=== PATIENT | male | born 1950 | race Caucasian/White ===

== ENCOUNTER 2025-04-15 19:18 | Inpatient (IN) ==
[2025-04-15] MEDS: ACETAMINOPHEN 1,000 MG/100 ML VIAL IV STA (19:54)
[2025-04-15] MEDS: ACETAMINOPHEN 1000 MG/100 ML IV IV ONE (19:54)
[2025-04-15] MEDS: SODIUM CHLORIDE 0.9% 1,000 ML IV ONE (19:54)
[2025-04-15] MEDS: cefTRIAXone SODIUM 2,000 MG/50 ML BAG IV STA (20:00)
--- NOTE | 2025-04-15 20:12 | XRay Report ---
Single frontal view of the chest Comparison made with prior exam dated 09/18/2023 Impression No acute pulmonary pathology. Left chest wall intracardiac device. Electronically signed by Moustapha Muller 04-15-2025 8:12 PM
[2025-04-15 20:17] LABS: Alanine Aminotransferase 80.0 U/L (7-52); Alkaline Phosphatase 40.0 U/L (34-104); Anion Gap 10.0 (3-11); Bilirubin,Total 1.2 mg/dl (0.2-1.0); Blood Urea Nitrogen 47.0 mg/dl (6-23); Calcium 8.2 mg/dl (8.6-10.3); Carbon Dioxide 22.0 mmol/L (21-32); Chloride 100.0 mmol/L (98-107); Creatinine Clr Calc Pharmacy 36.9 ml/min; Glucose 114.0 mg/dl (70-99(Fasting)); Magnesium 2.5 mg/dl (1.7-2.4); Potassium 4.4 mmol/L (3.5-5.1); Sodium 132.0 mmol/L (136-145); Total Protein 6.7 gm/dl (6.0-8.3)
[2025-04-15 20:29] LABS: Hematocrit (blood only) 41.5 % (42.0-52.0); Hemoglobin 13.3 g/dl (14.0-18.0); Mean Corpuscular Hemoglobin 29.8 pg (25.0-34.0); Mean Corpuscular Volume 92.8 fL (80.0-100.0); Platelet Count 57 K/uL (130-400); RDW Standard Deviation 51.8 fL (36.4-46.3); Red Blood Count 4.47 M/uL (4.70-6.10); White Blood Count 7.47 K/ul (4.8-10.8)
[2025-04-15 20:46] LABS: Immature Granulocytes # (auto) 0.02 K/uL (0.01-0.20); Immature Granulocytes % (auto) 0.3 %
[2025-04-15 20:57] LABS: Chlamydia pneumoniae PCR Not Detected (NotDetected); Coronavirus 229E PCR Not Detected (NotDetected); Coronavirus CoV-2 (COVID19)PCR Not Detected (NotDetected); Coronavirus HKU1 PCR Not Detected (NotDetected); Coronavirus NL63 PCR Not Detected (NotDetected); Coronavirus OC43PCR Not Detected (NotDetected); Human Metapneumovirus PCR Not Detected (NotDetected); Parainfluenza Virus 1 PCR Not Detected (NotDetected); Parainfluenza Virus 2 PCR Not Detected (NotDetected); Parainfluenza Virus 3 PCR Not Detected (NotDetected); Parainfluenza Virus 4 PCR Not Detected (NotDetected); Respiratory Syncytial VirusPCR Not Detected (NotDetected); Rhinovirus/Enterovirus PCR Not Detected (NotDetected)
[2025-04-15 21:15] LABS: Procalcitonin 3.60 ng/ml (0-0.5)
[2025-04-15 21:17] LABS: Appearance Urine Turbid (Clear); Bacteria Urine Automated None Seen (None Seen); Cast Urine Automated >20 /lpf (0-2); Glucose Urine UA 3+ (Negative); RBC Urine Automated 0-2 /hpf (0-2); WBC Urine Automated 0-5 /hpf (0-5)
[2025-04-15 21:39] LABS: INR 1.7 (0.9-1.1); Prothrombin Time 17.5 Seconds (9.0-12.0)
[2025-04-15 21:41] LABS: Lyme Screen Rflx Confirmation Negative (Negative)
[2025-04-15] MEDS: DOXYCYCLINE HYCLATE 100 MG in DEXTROSE 5% MINI-B 100 ML IV STA (21:50)
[2025-04-15] MEDS: DIGOXIN 250 MCG in SYRINGE 9 ML IV STA (21:56)
[2025-04-15] MEDS: LACTATED RINGER'S 1,000 ML IV STA (22:04)
--- NOTE | 2025-04-15 22:04 | History & Physical Report ---
Date of Service April 15, 2025 Assessment & Plan (1) Severe sepsis: Plan: Assessment and plan below following discussion of case with ED provider and reviewing patient history/pertinent normal/abnormal diagnostic test results. Severe sepsis SIRS plus lactic acidosis plus ARF Secondary to anaplasmosis Rapid A-fib secondary to illness, hx A-fib/flutter status post ablation/cardiac thrombus/history of DVT on Xarelto Troponin elevation secondary to illness chronic systolic heart failure status post ICD (EF 45%, TTE 2023), patient on the dry side Hypertension, borderline BP at the ER Hyperlipidemia on statin Rx HOCM, mild MR dementia, patient mentating well after initial intervention at the ER chronic anemia, hemoglobin at baseline Hyperglycemia likely prediabetes, outpatient hemoglobin A1c of 5.7 from 2022. past tobacco abuse Admit to PCU given rapid A-fib CS, doxycycline Monitor creatinine and lactic acid response to IVF Hold losartan until creatinine back to baseline Renal ultrasound if without improvement kidney function Digoxin 1 dose now for rapid A-fib given borderline BP Decrease maintenance beta-sophie dose for now given borderline BP DVT prophylaxis. Xarelto adjusted for current renal function Full code Patient partner requesting updates providers. Mayadam Stark, contact #[phone]. Text document was generated using [employer] voice recognition software. It may contain grammatical or spelling errors. Kindly contact undersigned for clarification of any documentation item in question. History of Present Illness Chief Complaint: Weakness, fever, not feeling well Primary Care Provider: Joel Morales MD History obtained from patient, family, and records. Medical history significant for chronic systolic heart failure status post ICD (EF 45%, TTE 2023), A-fib/flutter status post ablation/cardiac thrombus/history of DVT on Xarelto, HOCM, mild MR, PFO, NSVT, hypertension, hyperlipidemia, dementia, chronic anemia (baseline hemoglobin of 13), chronic back pain, past tobacco abuse. Last confinement 2013 for rapid A-fib. Patient not feeling well over the last 2 days. Patient increasingly weak and with mild confusion as per partner. Low-grade fever at home. Poor appetite. Patient denies headache, chest pain, SOB, cough, unusual abdominal or back pain. A lot of ticks at patient's home as per partner although patient has no recollection of recent tick bites. Patient noted to be in tachycardic upon EMS arrival at home. Patient with rapid A-fib upon arrival at the ER, heart rate 130s. Lowest SBP of 90s documented at the ER. Ceftriaxone and doxycycline administered at the ER for sepsis. Medical History as above Surgical History : Cataract surgery, vascular procedures, ICD, hernia repair Family History : Lung cancer, colon cancer, aplastic anemia, heart disease Personal/Social history : Past tobacco abuse, occasional EtOH intake, disabled Allergies Allergy/AdvReac Type Severity Reaction Status Date / Time pollen extracts Allergy Intermediate ITCHY Verified 04/15/25 22:09 EYES, SNEEZING, CONGESTION Home Medications Medication Instructions Recorded Confirmed Type amoxicillin 500 mg capsule 2,000 mg PO DIRECTED PRN PRIOR 10/06/23 04/15/25 History TO DENTAL PROCEDURES aspirin 81 mg tablet,delayed 81 mg PO [facility] 10/06/23 04/15/25 History release famotidine 20 mg tablet 20 mg PO [facility] 10/06/23 04/15/25 History magnesium oxide 400 mg PO [facility] 10/06/23 04/15/25 History metoprolol succinate 100 mg 150 mg PO [facility] 10/06/23 04/15/25 History tablet,extended release 24 hr rivaroxaban 20 mg tablet (Xarelto) 20 mg PO DAILY 10/06/23 04/15/25 History tramadol 50 mg tablet 50 mg PO BID Pain 10/06/23 04/15/25 History amiodarone 200 mg tablet 100 mg PO DAILY 03/24/24 04/15/25 History losartan 50 mg tablet 50 mg PO [facility] 03/24/24 04/15/25 History memantine 10 mg tablet 10 mg PO [facility] 03/24/24 04/15/25 History rosuvastatin 10 mg tablet 10 mg PO [facility] 03/24/24 04/15/25 History acetaminophen 300 mg-codeine 30 mg 1 tab PO HS PRN Severe Pain (Scale 04/15/25 04/15/25 History tablet Score 7-10) acetaminophen 500 mg tablet 500 mg PO Q6H PRN PAIN/FEVER 04/15/25 04/15/25 History (Tylenol Extra Strength) ascorbic acid (vitamin C) 500 mg 1,000 mg PO DAILY 04/15/25 04/15/25 History chewable tablet (Vitamin C) cholecalciferol (vitamin D3) 125 125 mcg PO DAILY 04/15/25 04/15/25 History mcg (5,000 unit) tablet (Vitamin D3) empagliflozin 10 mg tablet 10 mg PO QAM 04/15/25 04/15/25 History (Jardiance) melatonin 3 mg tablet 12 mg PO HS 04/15/25 04/15/25 History Past Med/Surg History Problem List (Updated 04/16/25 @ 01:02 by Miriam Hansen MD) Atrial fibrillation with rapid ventricular response (Acute) Elevated troponin (Acute) Anaplasmosis (Acute) Thrombocytopenia (Acute) Sepsis (Acute) Severe sepsis HTN (hypertension) (Chronic) History of atrial fibrillation (Chronic) Chest pain (Acute) Chest pain (Acute) Atrial fibrillation (Acute 07/25/14) Dehydration (Acute) Diarrhea (Acute) Hypomagnesemia (Acute) Paroxysmal atrial fibrillation (Acute) Medical History Embolus and thrombosis of abdominal aorta LV (left ventricular) mural thrombus Acute HFrEF (heart failure with reduced ejection fraction) Atrial flutter CHF (congestive heart failure) (07/25/14) Atrial fibrillation with rapid ventricular response Cardiomyopathy due to hypertension Social History (Updated 03/25/24 @ 00:46 by Jose Jules) Smoking Status: Never smoker Do You Dip or Chew Tobacco: No; Hx Alcohol Use: No Hx Substance Use: No Preferred Language: Occitan Communication Ability: Effective Vice President Planning Required: No Beliefs That Will Affect Care: None marital status: Current Living Situation: Significant Other current occupational status: retired Feels Safe at Home: Yes Safety Concerns: Feels Safe At This Time Assistive Devices: Cane, Hearing Aid - Left and Hearing Aid - Right Review of Systems Review of Systems: As per HPI, all other systems reviewed and negative Physical Exam Physical Exam: GENERAL: Comfortable, no respiratory distress SKIN: Pallor, warm HEENT: Alopecia, pale palpebral conjunctivae, no ptosis, dry buccal mucosa NECK : Supple, no tenderness CHEST : CTA, no tenderness HEART : Tachycardic, no obvious murmurs ABDOMEN: Some distention, nontender EXTREMITIES : No LE swelling/tenderness, palpable pulses, no other conspicuous deformities noted NEUROLOGIC : Coherent, no facial asymmetry, no other gross focality Results & Data Results & Data Vital Signs (Past 12 Hours) Vital Signs Temp Pulse Pulse Resp BP BP Pulse Ox 04/15/25 21:56 85 04/15/25 20:56 36.9 C 04/15/25 20:31 107/60 04/15/25 20:30 113 H 28 H 91 04/15/25 20:24 117 H 30 H 94 04/15/25 20:15 103/66 04/15/25 20:15 118 H 24 93 04/15/25 20:15 114 H 30 H 103/66 96 04/15/25 20:03 120 H 29 H 95 04/15/25 20:00 111/58 L 04/15/25 20:00 111/58 L 04/15/25 20:00 120 H 20 111/58 L 92 04/15/25 19:45 123/58 L 04/15/25 19:40 129 H 31 H 119/69 94 04/15/25 19:29 39.5 C H 132 H 32 H 92/75 L 94 04/15/25 19:28 136 H O2 Del Method 04/15/25 21:56 04/15/25 20:56 04/15/25 20:31 04/15/25 20:30 04/15/25 20:24 04/15/25 20:15 04/15/25 20:15 04/15/25 20:15 Room Air 04/15/25 20:03 04/15/25 20:00 04/15/25 20:00 04/15/25 20:00 Room Air 04/15/25 19:45 04/15/25 19:40 Room Air 04/15/25 19:29 Room Air 04/15/25 19:28 Laboratory Results Laboratory Results WBC 7.47 K/ul (4.8-10.8) 04/15/25 19:34 RBC 4.47 M/uL (4.70-6.10) L 04/15/25 19:34 Hgb 13.3 g/dl (14.0-18.0) L 04/15/25 19:34 Hct 41.5 % (42.0-52.0) L 04/15/25 19:34 MCV 92.8 fL (80.0-100.0) 04/15/25 19:34 MCH 29.8 pg (25.0-34.0) 04/15/25 19:34 MCHC 32.0 g/dL (32.0-36.0) 04/15/25 19:34 RDW Std Deviation 51.8 fL (36.4-46.3) H 04/15/25 19:34 RDW Coeff of Tha 15.2 % (11.5-14.5) H 04/15/25 19:34 Plt Count 57 K/uL (130-400) L 04/15/25 19:34 MPV 11.7 fL (9.4-12.4) 04/15/25 19:34 Immature Gran % (Auto) 0.3 % 04/15/25 19:34 Neut % (Auto) 94.7 % 04/15/25 19: Lymph % (Auto) 2.5 % 04/15/25 19: [place] % (Auto) 2.4 % 04/15/25 19:34 Eos % (Auto) 0.0 % 04/15/25 19:34 Baso % (Auto) 0.1 % 04/15/25 19:34 Neut # (Auto) 7.07 K/uL (1.40-6.50) H 04/15/25 19:34 Lymph # (Auto) 0.19 K/uL (1.20-3.40) L 04/15/25 19:34 [place] # (Auto) 0.18 K/uL (0.11-0.59) 04/15/25 19:34 Eos # (Auto) 0.00 K/uL (0.00-0.50) 04/15/25 19:34 Baso # (Auto) 0.01 K/uL (0.00-0.20) 04/15/25 19: Immature Gran # (Auto) 0.02 K/uL (0.01-0.20) 04/15/25 19:34 Platelet Estimate Decreased (Normal) L 04/15/25 19:34 PT 17.5 Seconds (9.0-12.0) H 04/15/25 19:34 INR 1.7 (0.9-1.1) H 04/15/25 19:34 Sodium 132 mmol/L (136-145) L 04/15/25 19:34 Potassium 4.4 mmol/L (3.5-5.1) 04/15/25 19: Chloride 100 mmol/L (98-107) 04/15/25 19:34 Carbon Dioxide 22 mmol/L (21-32) 04/15/25 19:34 Anion Gap 10 (3-11) 04/15/25 19:34 BUN 47 mg/dl (6-23) H 04/15/25 19:34 Creatinine 1.73 mg/dl (0.6-1.4) H 04/15/25 19:34 Est Cr Clr Drug Dosing 36.9 ml/min 04/15/25 19:34 eGFR 41.17 04/15/25 19:34 BUN/Creatinine Ratio 27.2 (10-20) H 04/15/25 19:34 Glucose 114 mg/dl (70-99(Fasting)) H 04/15/25 19:34 POC Glucose 126 mg/dl (70-99) H 04/15/25 19:48 Lactate 1.8 mmol/L (0.4-2.0) 04/15/25 21:37 Calcium 8.2 mg/dl (8.6-10.3) L 04/15/25 19:34 Magnesium 2.5 mg/dl (1.7-2.4) H 04/15/25 19:34 Total Bilirubin 1.2 mg/dl (0.2-1.0) H 04/15/25 19:34 Direct Bilirubin 0.3 mg/dl (0-0.2) H 04/15/25 19:34 AST 97 U/L (13-39) H 04/15/25 19:34 ALT 80 U/L (7-52) H 04/15/25 19:34 Alkaline Phosphatase 40 U/L (34-104) 04/15/25 19:34 Troponin I High Sens 117.6 pg/ml (0-20) H* 04/15/25 19:34 Total Protein 6.7 gm/dl (6.0-8.3) 04/15/25 19:34 Albumin 3.5 gm/dl (3.4-5.0) 04/15/25 19:34 Procalcitonin 3.60 ng/ml (0-0.5) H 04/15/25 19:34 Urine Color Yellow 04/15/25 20:45 Urine Appearance Turbid (Clear) A 04/15/25 20:45 Urine pH 5.5 (4.5-7.5) 04/15/25 20:45 Ur Specific [place] 1.034 (1.000-1.030) H 04/15/25 20:45 Urine Protein 2+ (Negative) H 04/15/25 20:45 Urine Glucose (UA) 3+ (Negative) H 04/15/25 20:45 Urine Ketones Trace (Negative) H 04/15/25 20:45 Urine Blood 2+ (Negative) H 04/15/25 20:45 Urine Nitrite Negative (Negative) 04/15/25 20:45 Urine Bilirubin Negative (Negative) 04/15/25 20:45 Urine Urobilinogen Negative (Negative) 04/15/25 20:45 Ur Leukocyte Esterase Negative (Negative) 04/15/25 20:45 Urine WBC (Auto) 0-5 /hpf (0-5) 04/15/25 20:45 Urine RBC (Auto) 0-2 /hpf (0-2) 04/15/25 20:45 U Hyaline Cast (Auto) >20 /lpf (0-2) H 04/15/25 20:45 U Epithel Cells (Auto) 6-10 /hpf (0-2) H 04/15/25 20:45 Urine Bacteria (Auto) None Seen (None Seen) 04/15/25 20:45 Urine Comment 04/15/25 20:45 Adenovirus (PCR) Not Detected (NotDetected) 04/15/25 19:57 Anaplasma Smear See Comment A 04/15/25 19:34 B. pertussis DNA (PCR) Not Detected (NotDetected) 04/15/25 19:57 B.parapertussis DNA PCR Not Detected (NotDetected) 04/15/25 19:57 Lyme Disease Screen Negative (Negative) 04/15/25 19:34 C. pneumoniae DNA (PCR) Not Detected (NotDetected) 04/15/25 19:57 Coronavirus OC43 (PCR) Not Detected (NotDetected) 04/15/25 19:57 Coronavirus HKU1 (PCR) Not Detected (NotDetected) 04/15/25 19:57 Coronavirus 229E (PCR) Not Detected (NotDetected) 04/15/25 19:57 SARS-CoV-2 (PCR) Not Detected (NotDetected) 04/15/25 19:57 Coronavirus NL63 (PCR) Not Detected (NotDetected) 04/15/25 19:57 Human Metapneumovir PCR Not Detected (NotDetected) 04/15/25 19:57 Influenza Type A (PCR) Not Detected (NotDetected) 04/15/25 19:57 Influenza Type B (PCR) Not Detected (NotDetected) 04/15/25 19:57 M. pneumoniae (PCR) Not Detected (NotDetected) 04/15/25 19:57 Parainfluenza 1 (PCR) Not Detected (NotDetected) 04/15/25 19:57 Parainfluenza 2 (PCR) Not Detected (NotDetected) 04/15/25 19:57 Parainfluenza 3 (PCR) Not Detected (NotDetected) 04/15/25 19:57 Parainfluenza 4 (PCR) Not Detected (NotDetected) 04/15/25 19:57 RSV (PCR) Not Detected (NotDetected) 04/15/25 19:57 Entero/Rhino (PCR) Not Detected (NotDetected) 04/15/25 19:57 Impressions Chest X-Ray 04/15/25 19:20 Single frontal view of the chest Comparison made with prior exam dated 09/18/2023 Impression No acute pulmonary pathology. Left chest wall intracardiac device. Electronically signed by Moustapha Muller 04-15-2025 8:12 PM Diagnostic Findings EKG as per my interpretation :Rate 130, A-fib, LAD, LAFB, RBBB, T wave inversion lateral leads
[2025-04-15] MEDS ORDERED: PROMETHAZINE 6.25 MG/50.25 ML BAG IV PRN (22:15)
[2025-04-15] MEDS ORDERED: ACETAMINOPHEN 500 MG TAB PO PRN (22:16)
[2025-04-15 22:27] LABS: Creatine Kinase 125.0 U/L (30-223)
[2025-04-15] MEDS: RIVAROXABAN 15 MG TAB PO SCH (22:43)
--- NOTE | 2025-04-16 00:42 | Emergency Department Note ---
Impression & Plan Sepsis, Thrombocytopenia, Anaplasmosis, Elevated troponin, Atrial fibrillation with rapid ventricular response ED Provider Note NAME: ADDISON WALDEN AGE: 74 SEX: M : 1950 ARRIVES VIA: Ambulance INFORMANT: Patient, ED PROVIDER(S): Miriam Hansen MD CHIEF COMPLAINT: Confusion, fever HPI: This is a 74-year-old male presented for confusion and fever. Patient has a slight history of dementia. Otherwise over the past 1 day patient is had increasing confusion. At home had a low-grade fever 100.3. Otherwise states that patient is not making sense, does not member basic things and has no thought process at this time. He is very forgetful. Otherwise has been having chills and sweating. Reports no pain anywhere. ROS: Unable to obtain due to altered mental status PHYSICAL EXAMINATION: General: resting comfortably in no acute distress Head: Normocephalic and atraumatic Eyes: Normal inspection, extraocular muscles intact Ear, nose, throat: Normal external exam Neck: Normal range of motion Respiratory: lungs clear to auscultation bilaterally Cardiovascular: Regular rate/rhythm, no murmur GI: soft, nontender, no guarding or rebound Extremities: nontender, moves all extremities Neuro: The patient awake and alert, not oriented to place, time, appropriately conversive, no focal deficits, symmetric faces Skin: Warm, dry, and intact MEDICAL DECISION MAKING: This is a [age]-year-old male presenting for confusion and fever. Patient appears to be mildly septic. He had hypotension on arrival 90s over 70s. Given 500 cc bolus by EMS. Otherwise he is febrile to 39.5. Heart rate elevated at 130s. - Will empirically start with basic blood work, lactic acid level, blood cultures, and procalcitonin. 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 Will do limited fluids due to this history of CHF. Blood pressure does improve after a total of 1 L, 500 mL from EMS, 500 mL from ER. - Blood work reveals no leukocytosis. Hemoglobin 13.3. INR 1.7. Platelet count low at 57. Slight transaminitis is noted. Troponin elevated at 127.6. Creatinine 1.73, elevated - ECG independently interpreted by me with atrial fibrillation with RVR rate of 130, QRS 152, right bundle branch block, prolonged QTc, no ST segment elevations consistent with STEMI criteria - Patient is having rigors and diaphoresis at this time. Given Tylenol as well for fever - I did get a message from lab that patient's CBC smear appears consistent with likely anaplasmosis. - Will give doxycycline at this time for the anaplasmosis. - Upper respiratory panel negative - Chest x-ray Independently interpreted to me as cardiomegaly, without pleural effusion or focal opacity - Will admit the patient for sepsis secondary to anaplasmosis Differential diagnosis: Sepsis, pneumonia, UTI, bacteremia Independent History obtained from: Diagnostics interpreted by me: ECG: See above Cardiac Monitoring: An order was placed for continuous cardiac monitoring. The monitor shows a rate of 124 with atrial fibrillation rhythm. Critical Care Note: I have personally spent 34 minutes of critical care time in the direct management of this patient. This includes bedside care, interpretation of diagnostic studies, and testing, discussion with consultants, patient, and family members, and other required patient management activities. This 34 minutes is in excess of all separately billable procedures. Past Med/Surg History Problem List (Updated 04/16/25 @ 01:02 by Miriam Hansen MD) Atrial fibrillation with rapid ventricular response (Acute) Elevated troponin (Acute) Anaplasmosis (Acute) Thrombocytopenia (Acute) Sepsis (Acute) Severe sepsis HTN (hypertension) (Chronic) History of atrial fibrillation (Chronic) Chest pain (Acute) Chest pain (Acute) Atrial fibrillation (Acute 07/25/14) Dehydration (Acute) Diarrhea (Acute) Hypomagnesemia (Acute) Paroxysmal atrial fibrillation (Acute) Medical History Embolus and thrombosis of abdominal aorta LV (left ventricular) mural thrombus Acute HFrEF (heart failure with reduced ejection fraction) Atrial flutter CHF (congestive heart failure) (07/25/14) Atrial fibrillation with rapid ventricular response Cardiomyopathy due to hypertension Social History (Updated 03/25/24 @ 00:46 by Jose Jules) Smoking Status: Never smoker Preferred Language: [place] marital status: current occupational status: retired Feels Safe at Home: Yes Allergies Allergies Allergy/AdvReac Type Severity Reaction Status Date / Time pollen extracts Allergy Intermediate ITCHY Verified 04/15/25 22:09 EYES, SNEEZING, CONGESTION Home Meds Home Medications Medication Instructions Recorded Confirmed amoxicillin 500 mg capsule 2,000 mg PO DIRECTED PRN PRIOR 10/06/23 04/15/25 TO DENTAL PROCEDURES aspirin 81 mg tablet,delayed 81 mg PO QAM 10/06/23 04/15/25 release famotidine 20 mg tablet 20 mg PO AMHS 10/06/23 04/15/25 magnesium oxide 400 mg PO QAM 10/06/23 04/15/25 metoprolol succinate 100 mg 150 mg PO AMHS 10/06/23 04/15/25 tablet,extended release 24 hr rivaroxaban 20 mg tablet (Xarelto) 20 mg PO DAILY 10/06/23 04/15/25 tramadol 50 mg tablet 50 mg PO BID Pain 10/06/23 04/15/25 amiodarone 200 mg tablet 100 mg PO DAILY 03/24/24 04/15/25 losartan 50 mg tablet 50 mg PO QA 03/24/24 04/15/25 memantine 10 mg tablet 10 mg PO [facility] 03/24/24 04/15/25 rosuvastatin 10 mg tablet 10 mg PO QA 03/24/24 04/15/25 acetaminophen 300 mg-codeine 30 mg 1 tab PO HS PRN Severe Pain (Scale 04/15/25 04/15/25 tablet Score 7-10) acetaminophen 500 mg tablet 500 mg PO Q6H PRN PAIN/FEVER 04/15/25 04/15/25 (Tylenol Extra Strength) ascorbic acid (vitamin C) 500 mg 1,000 mg PO DAILY 04/15/25 04/15/25 chewable tablet (Vitamin C) cholecalciferol (vitamin D3) 125 125 mcg PO DAILY 04/15/25 04/15/25 mcg (5,000 unit) tablet (Vitamin D3) empagliflozin 10 mg tablet 10 mg PO QAM 04/15/25 04/15/25 (Jardiance) melatonin 3 mg tablet 12 mg PO HS 04/15/25 04/15/25 Results & Data (ED) Vital Signs Vital Signs - 24 hr 04/15/25 19:28 04/15/25 19:29 04/15/25 19:40 Temperature 39.5 C H Temperature Source Oral Pulse Rate 136 H 132 H Pulse Rate [Apical] 129 H Pulse Rate from SpO2 Sensor Pulse Rhythm Irregular Pulse Rhythm [Apical] Regular Pulse Strength Normal Pulse Strength [Apical] Normal Respiratory Rate 32 H 31 H Respiratory Effort / Characteristics Non-Labored Spontaneous Non-Labored Spontaneous Respiratory Depth Normal Normal Respiratory Pattern Regular Regular Blood Pressure 92/75 L Blood Pressure [Right Arm] 119/69 Blood Pressure Mean 80 Blood Pressure Mean [Right Arm] 85 Blood Pressure Position Lying Blood Pressure Position [Right Arm] Lying Pulse Oximetry 94 94 Oxygen Delivery Method Room Air Room Air Sepsis Recent Fever Within 48 Hours Yes Sepsis New/Unexplained Change in Mental Status Yes Sepsis Action Taken by Nursing Physician Notified 04/15/25 19:45 04/15/25 20:00 04/15/25 20:00 Temperature Temperature Source Pulse Rate Pulse Rate [Apical] 120 H Pulse Rate from SpO2 Sensor Pulse Rhythm Pulse Rhythm [Apical] Regular Pulse Strength Pulse Strength [Apical] Normal Respiratory Rate 20 Respiratory Effort / Characteristics Non-Labored Spontaneous Respiratory Depth Normal Respiratory Pattern Regular Blood Pressure 123/58 L 111/58 L Blood Pressure [Right Arm] 111/58 L Blood Pressure Mean 99 72 Blood Pressure Mean [Right Arm] 75 Blood Pressure Position Blood Pressure Position [Right Arm] Lying Pulse Oximetry 92 Oxygen Delivery Method Room Air Sepsis Recent Fever Within 48 Hours Sepsis New/Unexplained Change in Mental Status Sepsis Action Taken by Nursing 04/15/25 20:00 04/15/25 20:03 04/15/25 20:15 Temperature Temperature Source Oral Pulse Rate 120 H Pulse Rate [Apical] 114 H Pulse Rate from SpO2 Sensor 106 H Pulse Rhythm Pulse Rhythm [Apical] Regular Pulse Strength Pulse Strength [Apical] Normal Respiratory Rate 29 H 30 H Respiratory Effort / Characteristics Non-Labored Spontaneous Respiratory Depth Normal Respiratory Pattern Regular Blood Pressure 111/58 L Blood Pressure [Right Arm] 103/66 Blood Pressure Mean 72 Blood Pressure Mean [Right Arm] 78 Blood Pressure Position Blood Pressure Position [Right Arm] Lying Pulse Oximetry 95 96 Oxygen Delivery Method Room Air Sepsis Recent Fever Within 48 Hours Sepsis New/Unexplained Change in Mental Status Sepsis Action Taken by Nursing 04/15/25 20:15 04/15/25 20:15 04/15/25 20:24 Temperature Temperature Source Pulse Rate 118 H 117 H Pulse Rate [Apical] Pulse Rate from SpO2 Sensor 82 92 H Pulse Rhythm Pulse Rhythm [Apical] Pulse Strength Pulse Strength [Apical] Respiratory Rate 24 30 H Respiratory Effort / Characteristics Respiratory Depth Respiratory Pattern Blood Pressure 103/66 Blood Pressure [Right Arm] Blood Pressure Mean 82 Blood Pressure Mean [Right Arm] Blood Pressure Position Blood Pressure Position [Right Arm] Pulse Oximetry 93 94 Oxygen Delivery Method Sepsis Recent Fever Within 48 Hours Sepsis New/Unexplained Change in Mental Status Sepsis Action Taken by Nursing 04/15/25 20:30 04/15/25 20:31 04/15/25 20:51 Temperature Temperature Source Pulse Rate 113 H 117 H Pulse Rate [Apical] Pulse Rate from SpO2 Sensor 61 65 Pulse Rhythm Pulse Rhythm [Apical] Pulse Strength Pulse Strength [Apical] Respiratory Rate 28 H 28 H Respiratory Effort / Characteristics Respiratory Depth Respiratory Pattern Blood Pressure 107/60 124/78 Blood Pressure [Right Arm] Blood Pressure Mean 76 93 Blood Pressure Mean [Right Arm] Blood Pressure Position Blood Pressure Position [Right Arm] Pulse Oximetry 91 97 Oxygen Delivery Method Sepsis Recent Fever Within 48 Hours Sepsis New/Unexplained Change in Mental Status Sepsis Action Taken by Nursing 04/15/25 20:56 04/15/25 21:03 04/15/25 21:24 Temperature 36.9 C Temperature Source Oral Pulse Rate 111 H 110 H Pulse Rate [Apical] Pulse Rate from SpO2 Sensor 56 L 55 L Pulse Rhythm Pulse Rhythm [Apical] Pulse Strength Pulse Strength [Apical] Respiratory Rate 36 H 33 H Respiratory Effort / Characteristics Respiratory Depth Respiratory Pattern Blood Pressure 122/40 L 98/61 L Blood Pressure [Right Arm] Blood Pressure Mean 67 73 Blood Pressure Mean [Right Arm] Blood Pressure Position Blood Pressure Position [Right Arm] Pulse Oximetry 96 94 Oxygen Delivery Method Sepsis Recent Fever Within 48 Hours Sepsis New/Unexplained Change in Mental Status Sepsis Action Taken by Nursing 04/15/25 21:31 04/15/25 21:31 04/15/25 21:42 Temperature Temperature Source Pulse Rate 83 86 Pulse Rate [Apical] Pulse Rate from SpO2 Sensor 86 Pulse Rhythm Pulse Rhythm [Apical] Pulse Strength Pulse Strength [Apical] Respiratory Rate 27 H 29 H Respiratory Effort / Characteristics Respiratory Depth Respiratory Pattern Blood Pressure 110/85 110/85 96/69 L Blood Pressure [Right Arm] Blood Pressure Mean 90 90 78 Blood Pressure Mean [Right Arm] Blood Pressure Position Blood Pressure Position [Right Arm] Pulse Oximetry 97 95 Oxygen Delivery Method Sepsis Recent Fever Within 48 Hours Sepsis New/Unexplained Change in Mental Status Sepsis Action Taken by Nursing 04/15/25 21:56 04/15/25 22:00 Temperature Temperature Source Pulse Rate 85 82 Pulse Rate [Apical] Pulse Rate from SpO2 Sensor 82 Pulse Rhythm Pulse Rhythm [Apical] Pulse Strength Pulse Strength [Apical] Respiratory Rate 30 H Respiratory Effort / Characteristics Respiratory Depth Respiratory Pattern Blood Pressure 101/71 Blood Pressure [Right Arm] Blood Pressure Mean 81 Blood Pressure Mean [Right Arm] Blood Pressure Position Blood Pressure Position [Right Arm] Pulse Oximetry 93 Oxygen Delivery Method Sepsis Recent Fever Within 48 Hours Sepsis New/Unexplained Change in Mental Status Sepsis Action Taken by Nursing Laboratory Data 04/15/25 19:34 04/15/25 19:34 Lab Results 04/15/25 04/15/25 04/15/25 Range/Units 19:34 19:48 19:57 WBC 7.47 (4.8-10.8) K/ul RBC 4.47 L (4.70-6.10) M/uL Hgb 13.3 L (14.0-18.0) g/dl Hct 41.5 L (42.0-52.0) % MCV 92.8 (80.0-100.0) fL MCH 29.8 (25.0-34.0) pg MCHC 32.0 (32.0-36.0) g/dL RDW Std Deviation 51.8 H (36.4-46.3) fL RDW Coeff of Tha 15.2 H (11.5-14.5) % Plt Count 57 L (130-400) K/uL MPV 11.7 (9.4-12.4) fL Immature Gran % (Auto) 0.3 % Neut % (Auto) 94.7 % Lymph % (Auto) 2.5 % [place] % (Auto) 2.4 % Eos % (Auto) 0.0 % Baso % (Auto) 0.1 % Neut # (Auto) 7.07 H (1.40-6.50) K/uL Lymph # (Auto) 0.19 L (1.20-3.40) K/uL [place] # (Auto) 0.18 (0.11-0.59) K/uL Eos # (Auto) 0.00 (0.00-0.50) K/uL Baso # (Auto) 0.01 (0.00-0.20) K/uL Immature Gran # (Auto) 0.02 (0.01-0.20) K/uL Platelet Estimate Decreased L (Normal) PT 17.5 H (9.0-12.0) Seconds INR 1.7 H (0.9-1.1) Sodium 132 L (136-145) mmol/L Potassium 4.4 (3.5-5.1) mmol/L Chloride 100 (98-107) mmol/L Carbon Dioxide 22 (21-32) mmol/L Anion Gap 10 (3-11) BUN 47 H (6-23) mg/dl Creatinine 1.73 H (0.6-1.4) mg/dl Est Cr Clr Drug Dosing 36.9 ml/min eGFR 41.17 BUN/Creatinine Ratio 27.2 H (10-20) Glucose 114 H (70-99(Fasting)) mg/dl POC Glucose 126 H (70-99) mg/dl Lactate 2.2 H* (0.4-2.0) mmol/L Calcium 8.2 L (8.6-10.3) mg/dl Magnesium 2.5 H (1.7-2.4) mg/dl Total Bilirubin 1.2 H (0.2-1.0) mg/dl Direct Bilirubin 0.3 H (0-0.2) mg/dl AST 97 H (13-39) U/L ALT 80 H (7-52) U/L Alkaline Phosphatase 40 (34-104) U/L Ammonia (18-72) umol/L Total Creatine Kinase 125 (30-223) U/L Troponin I High Sens 117.6 H* (0-20) pg/ml Total Protein 6.7 (6.0-8.3) gm/dl Albumin 3.5 (3.4-5.0) gm/dl Procalcitonin 3.60 H (0-0.5) ng/ml Urine Color Urine Appearance (Clear) Urine pH (4.5-7.5) Ur Specific [place] (1.000-1.030) Urine Protein (Negative) Urine Glucose (UA) (Negative) Urine Ketones (Negative) Urine Blood (Negative) Urine Nitrite (Negative) Urine Bilirubin (Negative) Urine Urobilinogen (Negative) Ur Leukocyte Esterase (Negative) Urine WBC (Auto) (0-5) /hpf Urine RBC (Auto) (0-2) /hpf U Hyaline Cast (Auto) (0-2) /lpf U Epithel Cells (Auto) (0-2) /hpf Urine Bacteria (Auto) (None Seen) Urine Comment Adenovirus (PCR) Not Detected (NotDetected) Anaplasma Smear See Comment A B. pertussis DNA (PCR) Not Detected (NotDetected) B.parapertussis DNA PCR Not Detected (NotDetected) Lyme Disease Screen Negative (Negative) C. pneumoniae DNA (PCR) Not Detected (NotDetected) Coronavirus OC43 (PCR) Not Detected (NotDetected) Coronavirus HKU1 (PCR) Not Detected (NotDetected) Coronavirus 229E (PCR) Not Detected (NotDetected) SARS-CoV-2 (PCR) Not Detected (NotDetected) Coronavirus NL63 (PCR) Not Detected (NotDetected) Human Metapneumovir PCR Not Detected (NotDetected) Influenza Type A (PCR) Not Detected (NotDetected) Influenza Type B (PCR) Not Detected (NotDetected) M. pneumoniae (PCR) Not Detected (NotDetected) Parainfluenza 1 (PCR) Not Detected (NotDetected) Parainfluenza 2 (PCR) Not Detected (NotDetected) Parainfluenza 3 (PCR) Not Detected (NotDetected) Parainfluenza 4 (PCR) Not Detected (NotDetected) RSV (PCR) Not Detected (NotDetected) Entero/Rhino (PCR) Not Detected (NotDetected) 04/15/25 04/15/25 Range/Units 20:45 21:37 WBC (4.8-10.8) K/ul RBC (4.70-6.10) M/uL Hgb (14.0-18.0) g/dl Hct (42.0-52.0) % MCV (80.0-100.0) fL MCH (25.0-34.0) pg MCHC (32.0-36.0) g/dL RDW Std Deviation (36.4-46.3) fL RDW Coeff of Tha (11.5-14.5) % Plt Count (130-400) K/uL MPV (9.4-12.4) fL Immature Gran % (Auto) % Neut % (Auto) % Lymph % (Auto) % [place] % (Auto) % Eos % (Auto) % Baso % (Auto) % Neut # (Auto) (1.40-6.50) K/uL Lymph # (Auto) (1.20-3.40) K/uL [place] # (Auto) (0.11-0.59) K/uL Eos # (Auto) (0.00-0.50) K/uL Baso # (Auto) (0.00-0.20) K/uL Immature Gran # (Auto) (0.01-0.20) K/uL Platelet Estimate (Normal) PT (9.0-12.0) Seconds INR (0.9-1.1) Sodium (136-145) mmol/L Potassium (3.5-5.1) mmol/L Chloride (98-107) mmol/L Carbon Dioxide (21-32) mmol/L Anion Gap (3-11) BUN (6-23) mg/dl Creatinine (0.6-1.4) mg/dl Est Cr Clr Drug Dosing ml/min eGFR BUN/Creatinine Ratio (10-20) Glucose (70-99(Fasting)) mg/dl POC Glucose (70-99) mg/dl Lactate 1.8 (0.4-2.0) mmol/L Calcium (8.6-10.3) mg/dl Magnesium (1.7-2.4) mg/dl Total Bilirubin (0.2-1.0) mg/dl Direct Bilirubin (0-0.2) mg/dl AST (13-39) U/L ALT (7-52) U/L Alkaline Phosphatase (34-104) U/L Ammonia 26.0 (18-72) umol/L Total Creatine Kinase (30-223) U/L Troponin I High Sens 127.6 H* (0-20) pg/ml Total Protein (6.0-8.3) gm/dl Albumin (3.4-5.0) gm/dl Procalcitonin (0-0.5) ng/ml Urine Color Yellow Urine Appearance Turbid A (Clear) Urine pH 5.5 (4.5-7.5) Ur Specific [place] 1.034 H (1.000-1.030) Urine Protein 2+ H (Negative) Urine Glucose (UA) 3+ H (Negative) Urine Ketones Trace H (Negative) Urine Blood 2+ H (Negative) Urine Nitrite Negative (Negative) Urine Bilirubin Negative (Negative) Urine Urobilinogen Negative (Negative) Ur Leukocyte Esterase Negative (Negative) Urine WBC (Auto) 0-5 (0-5) /hpf Urine RBC (Auto) 0-2 (0-2) /hpf U Hyaline Cast (Auto) >20 H (0-2) /lpf U Epithel Cells (Auto) 6-10 H (0-2) /hpf Urine Bacteria (Auto) None Seen (None Seen) Urine Comment Adenovirus (PCR) (NotDetected) Anaplasma Smear B. pertussis DNA (PCR) (NotDetected) B.parapertussis DNA PCR (NotDetected) Lyme Disease Screen (Negative) C. pneumoniae DNA (PCR) (NotDetected) Coronavirus OC43 (PCR) (NotDetected) Coronavirus HKU1 (PCR) (NotDetected) Coronavirus 229E (PCR) (NotDetected) SARS-CoV-2 (PCR) (NotDetected) Coronavirus NL63 (PCR) (NotDetected) Human Metapneumovir PCR (NotDetected) Influenza Type A (PCR) (NotDetected) Influenza Type B (PCR) (NotDetected) M. pneumoniae (PCR) (NotDetected) Parainfluenza 1 (PCR) (NotDetected) Parainfluenza 2 (PCR) (NotDetected) Parainfluenza 3 (PCR) (NotDetected) Parainfluenza 4 (PCR) (NotDetected) RSV (PCR) (NotDetected) Entero/Rhino (PCR) (NotDetected) Administered Medications Lactated Ringer's (Lr) 1,000 mls @ 150 mls/hr IV .[id number] STA Stop: 04/16/25 04:16 Last Admin: 04/15/25 22:04 Dose: 200 mls/hr Documented By: SEVERIANO Digoxin 250 mcg/ Syringe 10 mls @ 2 mls/min IV NOW ONE Stop: 04/16/25 01:04 Last Admin: 04/16/25 00:57 Dose: 2 mls/min Documented By: KEN Rivaroxaban (Rivaroxaban 15 Mg Tab) 15 mg PO HS [place] Stop: 05/15/25 22:19 Last Admin: 04/15/25 22:43 Dose: 15 mg Documented By: SEVERIANO Discontinued Medications Acetaminophen (Acetaminophen 1000 Mg/100 Ml Iv) Confirm Administered Dose 1,000 mg IV .STK-MED ONE Stop: 04/15/25 19:50 Last Admin: 04/15/25 19:54 Dose: Not Given Documented By: SEVERIANO Sodium Chloride (Nss) 1,000 mls @ 999 mls/hr IV .Q1H1M ONE Stop: 04/15/25 20:40 Last Infusion: 04/15/25 20:55 Dose: Infused Documented By: Admin: 04/15/25 19:54 Dose: 999 mls/hr Documented By: SEVERIANO Acetaminophen (Ofirmev) 1,000 mg in 100 mls @ 400 mls/hr IV NOW STA Stop: 04/15/25 20:07 Last Infusion: 04/15/25 20:14 Dose: Infused Documented By: Admin: 04/15/25 19:54 Dose: 400 mls/hr Documented By: SEVERIANO Ceftriaxone Sodium (Rocephin) 2,000 mg in 50 mls @ 100 mls/hr IV NOW STA Stop: 04/15/25 20:22 Last Infusion: 04/15/25 20:23 Dose: Infused Documented By: Admin: 04/15/25 20:00 Dose: 100 mls/hr Documented By: SEVERIANO Doxycycline Hyclate 100 mg/ (Dextrose) 100 mls @ 50 mls/hr IV NOW STA Stop: 04/15/25 22:45 Last Infusion: 04/15/25 23:50 Dose: Infused Documented By: Admin: 04/15/25 21:50 Dose: 50 mls/hr Documented By: SEVERIANO Digoxin 250 mcg/ Syringe 10 mls @ 2 mls/min IV NOW STA Stop: 04/15/25 21:39 Last Admin: 04/15/25 21:56 Dose: Not Given Documented By: SEVERIANO Imaging Data Radiologist's Impression: Chest X-Ray 04/15/25 19:20 Single frontal view of the chest Comparison made with prior exam dated 09/18/2023 Impression No acute pulmonary pathology. Left chest wall intracardiac device. Electronically signed by Moustapha Muller 04-15-2025 8:12 PM Discharge Plan Visit Data Chief Complaint: Altered Mental Status Stated Complaint: ALTERED MENTAL STATUS, FEVER, ?UTI ED Provider: Miriam Hansen Discharge Problem: Sepsis, Thrombocytopenia, Anaplasmosis, Elevated troponin, Atrial fibrillation with rapid ventricular response Patient Disposition: Admitted As Inpatient Condition: Serious Discharge Instructions Interventions: ED Discharge Assessment Last Done: 04/15/25 23:19 Discharge Problem: Sepsis Qualifiers: Sepsis type: sepsis due to unspecified organism Sepsis acute organ dysfunction status: with acute organ dysfunction Severe sepsis acute organ dysfunction type: acute renal failure Acute renal failure type: unspecified Severe sepsis shock status: with septic shock Qualified Code(s): A41.9 - Sepsis, unspecified organism; R65.21 - Severe sepsis with septic shock; N17.9 - Acute kidney failure, unspecified
[2025-04-16] MEDS: DIGOXIN 250 MCG in SYRINGE 9 ML IV ONE ×2 (00:57→01:32)
[2025-04-16] MEDS: NOREPINEPHRINE/D5W 4 MG/250 ML IV ONE (01:17)
[2025-04-16] MEDS: ACETAMINOPHEN 500 MG TAB PO STA (01:18)
[2025-04-16] MEDS: LACTATED RINGER'S 1,000 ML IV ONE (01:28)
[2025-04-16] MEDS: METOPROLOL SUCC 25MG EXT REL TAB PO STA (03:33)
[2025-04-16 05:21] LABS: Hematocrit (blood only) 39.4 % (42.0-52.0); Hemoglobin 12.5 g/dl (14.0-18.0); Mean Corpuscular Hemoglobin 29.7 pg (25.0-34.0); Mean Corpuscular Volume 93.6 fL (80.0-100.0); Platelet Count 46 K/uL (130-400); RDW Standard Deviation 52.8 fL (36.4-46.3); Red Blood Count 4.21 M/uL (4.70-6.10); White Blood Count 7.69 K/ul (4.8-10.8)
[2025-04-16 05:26] LABS: Alanine Aminotransferase 86.0 U/L (7-52); Albumin Globulin Ratio 1.0 (0.9-2); Alkaline Phosphatase 37.0 U/L (34-104); Anion Gap 8.0 (3-11); Bilirubin,Total 1.0 mg/dl (0.2-1.0); Blood Urea Nitrogen 46.0 mg/dl (6-23); Calcium 8.0 mg/dl (8.6-10.3); Carbon Dioxide 23.0 mmol/L (21-32); Chloride 105.0 mmol/L (98-107); Creatinine Clr Calc Pharmacy 38.7 ml/min; Globulin 3.1 gm/dl (2.5-4.0); Glucose 89.0 mg/dl (70-99(Fasting)); Potassium 4.1 mmol/L (3.5-5.1); Sodium 136.0 mmol/L (136-145); Total Protein 6.3 gm/dl (6.0-8.3)
[2025-04-16 05:40] LABS: Immature Granulocytes # (auto) 0.05 K/uL (0.01-0.20); Immature Granulocytes % (auto) 0.7 %
[2025-04-16] MEDS: AMIODARONE 200 MG TAB PO SCH (08:08)
[2025-04-16] MEDS: METOPROLOL SUCC 25MG EXT REL TAB PO SCH (08:08)
[2025-04-16] MEDS: DOXYCYCLINE HYCLATE 100 MG CAP PO SCH (08:09)
[2025-04-16] MEDS: MEMANTINE HCL 10 MG TAB PO SCH (08:09)
[2025-04-16] MEDS: FAMOTIDINE 20 MG TAB PO SCH (08:23)
[2025-04-16] MEDS: SODIUM CHLORIDE 0.9% 1,000 ML IV SCH (08:59)
--- NOTE | 2025-04-16 11:14 | Electrocardiogram Report ---
Test Reason : Blood Pressure : */* mmHG Vent. Rate : 130 BPM Atrial Rate : * BPM P-R Int : * ms QRS Dur : 152 ms QT Int : 358 ms P-R-T Axes : * 267 88 degrees QTcB Int : 526 ms Suspect arm lead reversal, interpretation assumes no reversal Atrial fibrillation with rapid ventricular response Right bundle branch block Lateral infarct (cited on or before 18-Sep-2023) Abnormal ECG When compared with ECG of 06-Oct-2023 00:22, Right bundle branch block has replaced Incomplete right bundle branch block Confirmed by Jose Eduardo Deras ([id number]) on 04/16/2025 11:13:53 AM Referred By: REFERRED SELF Confirmed By: Jose Eudardo Deras
--- NOTE | 2025-04-16 15:47 | Hospitalist Progress Note ---
Date of Service April 16, 2025 Assessment & Plan (1) Severe sepsis: Plan: Assessment and plan below following discussion of case with ED provider and reviewing patient history/pertinent normal/abnormal diagnostic test results. Severe sepsis SIRS plus lactic acidosis plus ARF Anaplasmosis -- Blood cultures pending --Urine culture pending --+ Anaplasmosis with intracytoplasmic neutrophilic inclusion -- Continue Rocephin, doxycycline for now --Continue IV fluids --Hold losartan due to hypotension --Adjust metoprolol dose as able. Continue at reduced dose due to low blood pressure A-fib RVR Secondary to above H/O ablation/cardiac thrombus History of DVT Received digoxin Metoprolol dose reduced due to hypotension--adjust as able Continue amiodarone Continue Xarelto for anticoagulation Transaminitis Thrombocytopenia Secondary to anaplasmosis Monitor LFTs, platelet count Currently no signs of bleeding Troponin elevation Likely demand ischemia secondary to A-fib RVR In setting of renal insufficiency, sepsis Denies any chest pain, dyspnea Acute kidney injury Likely ATN Continue IV fluids Avoid nephrotoxic agents as able Monitor renal function Chronic systolic heart failure S/P ICD (EF 45%, TTE 2023) Monitor volume status closely while on IV fluids Continue metoprolol Not on diuretics at baseline Hypertension Currently hypotensive Adjust medications as needed Hyperlipidemia Hold statin as LFTs elevated Other chronic conditions: HOCM, mild MR Dementia, patient mentating well after initial intervention at the ER Chronic anemia Prediabetes: Last HbA1c 5.7 Past tobacco use Continue home medications as able DVT Px: Xarelto adjusted for current renal function Code Status Full code Admission and Anticipated Discharge Date Admission Date: April 15, 2025 Subjective Patient is seen and examined at bedside States feeling very tired Also noted to be diaphoretic Denies any chest pain, dyspnea, nausea, vomiting, abdominal pain, focal weakness Heart rate is controlled Review of Systems Review of Systems: All systems reviewed & are unremarkable except as noted in Subjective Physical Exam Physical Exam: Physical Exam: Vitals signs as noted above General Appearance:Moderately built and nourished, no apparent distress Head: normocephalic, Atraumatic Eyes: normal inspection, EOMI Neck: supple, Trachea midline Respiratory/Chest: Normal breath sounds, CTA, No accessory muscle use Cardiovascular: Irregularly irregular, No murmur Abdomen/GI:Soft, Non tender, Bowel sounds present Extremities/Musculoskeletal:normal inspection, no edema Neurologic/Psych:AAOX3, grossly no focal neurological deficits Skin: normal color, warm Results & Data Results & Data Vital Signs (Past 12 Hours) Vital Signs Temp Pulse Pulse Pulse Resp BP BP 04/16/25 11:06 36.6 C 88 20 89/56 L 04/16/25 09:07 84 16 104/70 04/16/25 08:44 04/16/25 07:27 36.7 C 83 20 88/56 L 04/16/25 06:24 82 04/16/25 06:12 04/16/25 06:12 36.6 C 83 20 96/60 L 04/16/25 05:39 36.6 C 84 20 96/61 L 04/16/25 03:34 37.2 C 84 20 87/58 L Pulse Ox O2 Del Method O2 Flow Rate 04/16/25 11:06 98 Room Air 04/16/25 09:07 94 Room Air 04/16/25 08:44 Room Air 04/16/25 07:27 100 Nasal Cannula 2 04/16/25 06:24 04/16/25 06:12 Nasal Cannula 3 04/16/25 06:12 99 Nasal Cannula 3 04/16/25 05:39 98 Nasal Cannula 2 04/16/25 03:34 92 Room Air Laboratory Results Short CBC 04/15/25 04/16/25 Range/Units 19:34 04:33 WBC 7.47 7.69 (4.8-10.8) K/ul Hgb 13.3 L 12.5 L (14.0-18.0) g/dl Hct 41.5 L 39.4 L (42.0-52.0) % Plt Count 57 L 46 L (130-400) K/uL BMP 04/15/25 04/16/25 19:34 04:33 Sodium 132 L 136 Potassium 4.4 4.1 Chloride 100 105 Carbon Dioxide 22 23 BUN 47 H 46 H Creatinine 1.73 H 1.65 H Glucose 114 H 89 Calcium 8.2 L 8.0 L Cardiac Enzymes 04/15/25 Range/Units 19:34 Total Creatine Kinase 125 (30-223) U/L Liver Function 04/15/25 04/16/25 Range/Units 19:34 04:33 Total Bilirubin 1.2 H 1.0 (0.2-1.0) mg/dl Direct Bilirubin 0.3 H (0-0.2) mg/dl AST 97 H 116 H (13-39) U/L ALT 80 H 86 H (7-52) U/L Alkaline Phosphatase 40 37 (34-104) U/L Albumin 3.5 3.2 L (3.4-5.0) gm/dl Urine 04/15/25 Range/Units 20:45 Urine Color Yellow Urine Appearance Turbid A (Clear) Urine pH 5.5 (4.5-7.5) Ur Specific [place] 1.034 H (1.000-1.030) Urine Protein 2+ H (Negative) Urine Glucose (UA) 3+ H (Negative)
[2025-04-16 16:03] LABS: Anaplasmosis Smear(Rpt to DOH) Pos for Anaplasma
[2025-04-16] MEDS: MELATONIN 3 MG TAB PO SCH (20:11)
[2025-04-16] MEDS: cefTRIAXone SODIUM 1,000 MG/50 ML BAG IV SCH (20:12)
[2025-04-17 06:37] LABS: Hematocrit (blood only) 34.7 % (42.0-52.0); Hemoglobin 11.4 g/dl (14.0-18.0); Mean Corpuscular Hemoglobin 30.2 pg (25.0-34.0); Mean Corpuscular Volume 92.0 fL (80.0-100.0); Platelet Count 35 K/uL (130-400); RDW Standard Deviation 51.2 fL (36.4-46.3); Red Blood Count 3.77 M/uL (4.70-6.10); White Blood Count 4.21 K/ul (4.8-10.8)
[2025-04-17 06:55] LABS: Alanine Aminotransferase 113.0 U/L (7-52); Albumin Globulin Ratio 1.1 (0.9-2); Alkaline Phosphatase 43.0 U/L (34-104); Anion Gap 6.0 (3-11); Bilirubin,Total 0.8 mg/dl (0.2-1.0); Blood Urea Nitrogen 40.0 mg/dl (6-23); Calcium 7.8 mg/dl (8.6-10.3); Carbon Dioxide 22.0 mmol/L (21-32); Chloride 107.0 mmol/L (98-107); Creatinine Clr Calc Pharmacy 57.0 ml/min; Globulin 2.6 gm/dl (2.5-4.0); Glucose 96.0 mg/dl (70-99(Fasting)); Potassium 4.2 mmol/L (3.5-5.1); Sodium 135.0 mmol/L (136-145); Total Protein 5.5 gm/dl (6.0-8.3)
[2025-04-17] MEDS: LORATADINE 10 MG TAB PO ONE (12:00)
--- NOTE | 2025-04-17 15:28 | Hospitalist Progress Note ---
Date of Service April 17, 2025 Assessment & Plan (1) Severe sepsis: Plan: Assessment and plan below following discussion of case with ED provider and reviewing patient history/pertinent normal/abnormal diagnostic test results. Severe sepsis SIRS plus lactic acidosis plus ARF Anaplasmosis -- Blood cultures: Negative to date --Urine culture: Pending --+ Anaplasmosis with intracytoplasmic neutrophilic inclusion -- Continue Rocephin, doxycycline for now -- Received IV fluids --Held losartan due to hypotension--resume as able --Adjust metoprolol dose as able. Continue current medications for today A-fib RVR Secondary to above H/O ablation/cardiac thrombus History of DVT Received digoxin Metoprolol dose reduced due to hypotension--adjust as able Continue amiodarone Continue Xarelto for anticoagulation Transaminitis Thrombocytopenia Secondary to anaplasmosis Currently no signs of bleeding Monitor CBC, LFTs Troponin elevation Likely demand ischemia secondary to A-fib RVR In setting of renal insufficiency, sepsis Denies any chest pain, dyspnea Acute kidney injury Likely ATN Creatinine levels improved with IV fluids Avoid nephrotoxic agents as able Monitor renal function Chronic systolic heart failure S/P ICD (EF 45%, TTE 2023) Monitor volume status closely while on IV fluids Continue metoprolol Not on diuretics at baseline Hypertension Blood pressure better today Adjust medications as needed Monitor closely Hyperlipidemia Hold statin as LFTs elevated Other chronic conditions: HOCM, mild MR Dementia, patient mentating well after initial intervention at the ER Chronic anemia Prediabetes: Last HbA1c 5.7 Past tobacco use Continue home medications as able DVT Px: Xarelto Code Status Full code Disposition PT OT prior to discharge Admission and Anticipated Discharge Date Admission Date: April 15, 2025 Subjective Patient is seen and examined at bedside Reports poor sleep overnight Eager to get discharged Feels better when compared to yesterday Denies any chest pain, dyspnea, nausea, vomiting, abdominal pain, focal weakness, bleeding issues Review of Systems Review of Systems: All systems reviewed & are unremarkable except as noted in Subjective Physical Exam Physical Exam: Physical Exam: Vitals signs as noted above General Appearance:Moderately built and nourished, no apparent distress Head: normocephalic, Atraumatic Eyes: normal inspection, EOMI Neck: supple, Trachea midline Respiratory/Chest: Normal breath sounds, CTA, No accessory muscle use Cardiovascular: Irregularly irregular, No murmur Abdomen/GI:Soft, Non tender, Bowel sounds present Extremities/Musculoskeletal:normal inspection, no edema Neurologic/Psych:AAOX3, grossly no focal neurological deficits Skin: normal color, warm Results & Data Results & Data Vital Signs (Past 12 Hours) Vital Signs Temp Pulse Pulse Resp BP Pulse Ox O2 Del Method 04/17/25 15:18 93 H 04/17/25 11:00 36.7 C 90 18 122/74 96 Room Air 04/17/25 07:56 92 H 04/17/25 07:21 36.7 C 94 H 20 131/75 96 Room Air 04/17/25 04:55 94 H Laboratory Results Short CBC 04/17/25 Range/Units 06:01 WBC 4.21 L (4.8-10.8) K/ul Hgb 11.4 L (14.0-18.0) g/dl Hct 34.7 L (42.0-52.0) % Plt Count 35 L (130-400) K/uL BMP 04/17/25 06:01 Sodium 135 L Potassium 4.2 Chloride 107 Carbon Dioxide 22 BUN 40 H Creatinine 1.14 D Glucose 96 Calcium 7.8 L Liver Function 04/17/25 Range/Units 06:01 Total Bilirubin 0.8 (0.2-1.0) mg/dl AST 134 H (13-39) U/L ALT 113 H (7-52) U/L Alkaline Phosphatase 43 (34-104) U/L Albumin 2.9 L (3.4-5.0) gm/dl
[2025-04-17] MEDS: RIVAROXABAN 20 MG TAB PO SCH (15:33)
--- NOTE | 2025-04-17 16:31 | Communication Note ---
Date of Service: April 17, 2025 Patient having NSVT's. Given blood pressure better, will increase metoprolol succinate to 100 mg twice a day. If blood pressure continues to be stable, plan to increase metoprolol succinate to 150 mg twice a day (his home dose.)
[2025-04-17] MEDS: METOPROLOL SUCC 50MG EXT REL TAB PO ONE (16:41)
[2025-04-17] MEDS: METOPROLOL SUCC 50MG EXT REL TAB PO SCH (20:31)
[2025-04-18 07:19] LABS: Hematocrit (blood only) 39.0 % (42.0-52.0); Hemoglobin 12.6 g/dl (14.0-18.0); Mean Corpuscular Hemoglobin 29.8 pg (25.0-34.0); Mean Corpuscular Volume 92.2 fL (80.0-100.0); Platelet Count 65 K/uL (130-400); RDW Standard Deviation 52.2 fL (36.4-46.3); Red Blood Count 4.23 M/uL (4.70-6.10); White Blood Count 7.15 K/ul (4.8-10.8)
[2025-04-18 07:45] LABS: Alanine Aminotransferase 152.0 U/L (7-52); Albumin Globulin Ratio 1.1 (0.9-2); Alkaline Phosphatase 57.0 U/L (34-104); Anion Gap 6.0 (3-11); Bilirubin,Total 0.9 mg/dl (0.2-1.0); Blood Urea Nitrogen 34.0 mg/dl (6-23); Calcium 8.9 mg/dl (8.6-10.3); Carbon Dioxide 24.0 mmol/L (21-32); Chloride 107.0 mmol/L (98-107); Creatinine Clr Calc Pharmacy 59.1 ml/min; Globulin 3.0 gm/dl (2.5-4.0); Glucose 89.0 mg/dl (70-99(Fasting)); Magnesium 1.9 mg/dl (1.7-2.4); Potassium 4.5 mmol/L (3.5-5.1); Sodium 137.0 mmol/L (136-145); Total Protein 6.4 gm/dl (6.0-8.3)
--- NOTE | 2025-04-18 15:43 | Hospitalist Progress Note ---
Date of Service April 18, 2025 Assessment & Plan (1) Severe sepsis: Plan: Assessment and plan below following discussion of case with ED provider and reviewing patient history/pertinent normal/abnormal diagnostic test results. Urine culture pending. The patient has been here with urine culture is pending severe sepsis SIRS plus lactic acidosis plus ARF Anaplasmosis -- Blood cultures: Negative to date --Urine culture: was negative --+ Anaplasmosis with intracytoplasmic neutrophilic inclusion -- Continue Rocephin, doxycycline for now -- Received IV fluids --Held losartan due to hypotension--resume as able --Adjust metoprolol dose as able. Clinically better but remains weak and lethargic and he still has mild to moderate shortness of breath at rest Will get PT and OT evaluation and 2 steps O2 saturation test prior to discharge A-fib RVR Secondary to above H/O ablation/cardiac thrombus History of DVT Received digoxin Metoprolol dose reduced due to hypotension--adjust as able Continue amiodarone Continue Xarelto for anticoagulation Rate is controlled Transaminitis Thrombocytopenia Secondary to anaplasmosis Currently no signs of bleeding Has not improved yet and will recheck tomorrow Troponin ladi LFTsvation Likely demand ischemia secondary to A-fib RVR In setting of renal insufficiency, sepsis Denies any chest pain, dyspnea Acute kidney injury Likely ATN Creatinine levels improved with IV fluids Avoid nephrotoxic agents as able Monitor renal function-renal function has been normalized Chronic systolic heart failure S/P ICD (EF 45%, TTE 2023) Monitor volume status closely while on IV fluids Continue metoprolol Not on diuretics at baseline Hypertension Blood pressure better today Adjust medications as needed Monitor closely Hyperlipidemia Hold statin as LFTs elevated Other chronic conditions: HOCM, mild MR Dementia, patient mentating well after initial intervention at the ER Chronic anemia Prediabetes: Last HbA1c 5.7 Past tobacco use Continue home medications as able DVT Px: Xarelto Code Status Full code Disposition PT OT prior to discharge-likely discharge tomorrow Admission and Anticipated Discharge Date Admission Date: April 15, 2025 Subjective 04/18/2025 The patient was seen and examined in telemetry unit He has been feeling much better but remains generally weak with mild to moderate shortness of breath at rest Denies any abdominal pain and his LFTs are not any better Awaiting PT and OT evaluation prior to discharge Review of Systems Review of Systems: All systems reviewed and are unremarkable except as noted below Physical Exam Physical Exam: Sitting at the edge of the bed without any acute distress except mild shortness of breath Constitutional: well developed, well nourished and + ill appearing Eyes: PERRL, conjunctivae normal, anicteric sclerae ENMT: external ear and nose normal, oropharynx normal Neck: trachea midline, no thyromegaly Respiratory: no respiratory distress Auscultation: lungs clear to auscultation bilaterally Cardiovascular: Rate/Rhythm: + irregularly irregular; not tachycardic Heart Sounds: normal S1 and normal S2; no murmur Extremities: no edema Gastrointestinal (Abdomen): Inspection/Auscultation: normal bowel sounds; abdomen not distended Percussion/Palpation: abdomen soft; abdomen nontender Musculoskeletal: No acute arthritis involving any of the joint regular Neurologic: normal touch/pain/proprioception and moves all extremities; no focal motor deficits Psychiatric: A+Ox3, euthymic affect Lymphatic: no cervical or axillary lymphadenopathy Results & Data Results & Data Vital Signs (Past 12 Hours) Vital Signs Temp Pulse Pulse Resp BP BP Pulse Ox 04/18/25 10:33 36.5 C 94 H 16 129/75 95 04/18/25 09:00 04/18/25 08:05 70 04/18/25 07:43 36.1 C L 79 14 151/82 H 143/83 H 99 O2 Del Method 04/18/25 10:33 Room Air 04/18/25 09:00 Room Air 04/18/25 08:05 04/18/25 07:43 Room Air Laboratory Results Short CBC 04/18/25 Range/Units 06:34 WBC 7.15 (4.8-10.8) K/ul Hgb 12.6 L (14.0-18.0) g/dl Hct 39.0 L (42.0-52.0) % Plt Count 65 L D (130-400) K/uL BMP 04/18/25 06:34 Sodium 137 Potassium 4.5 Chloride 107 Carbon Dioxide 24 BUN 34 H Creatinine 1.08 Glucose 89 Calcium 8.9 Liver Function 04/18/25 Range/Units 06:34 Total Bilirubin 0.9 (0.2-1.0) mg/dl AST 124 H (13-39) U/L ALT 152 H (7-52) U/L Alkaline Phosphatase 57 (34-104) U/L Albumin 3.4 (3.4-5.0) gm/dl Medications Administered Current Inpatient Medications Acetaminophen (Acetaminophen 500 Mg Tab) 500 mg PO Q6H PRN PRN Reason: fever/pain Stop: 05/15/25 22:15 Amiodarone HCl (Amiodarone 200 Mg Tab) 100 mg PO DAILY [facility] Stop: 05/16/25 08:59 Last Admin: 04/18/25 09:03 Dose: 100 mg Doxycycline Hyclate (Doxycycline Hyclate 100 Mg Cap) 100 mg PO BID [facility] Stop: 04/30/25 08:59 Last Admin: 04/18/25 09:02 Dose: 100 mg Famotidine (Famotidine 20 Mg Tab) 20 mg PO [facility] Stop: 05/16/25 08:59 Last Admin: 04/18/25 09:58 Dose: 20 mg Promethazine HCl (Phenergan) 6.25 mg in 50.25 mls @ 201 mls/hr IV Q6H PRN PRN Reason: Nausea And Vomiting Stop: 05/15/25 22:14 Ceftriaxone Sodium (Rocephin) 1,000 mg in 50 mls @ 100 mls/hr IV Q24H [facility] Stop: 04/21/25 19:59 Last Infusion: 04/17/25 21:12 Dose: Infused Melatonin (Melatonin 3 Mg Tab) 6 mg PO HS [facility] Stop: 05/16/25 20:59 Last Admin: 04/17/25 20:30 Dose: 6 mg Memantine (Memantine Hcl 10 Mg Tab) 10 mg PO [facility] Stop: 05/16/25 08:59 Last Admin: 04/18/25 09:03 Dose: 10 mg Metoprolol Succinate (Metoprolol Succ 50mg Ext Rel Tab) 100 mg PO [facility] Stop: 05/17/25 20:59 Last Admin: 04/18/25 09:02 Dose: 100 mg Oxycodone HCl (Oxycodone Hcl Ir 5 Mg Tab (Immediate Release)) 5 mg PO Q4H PRN PRN Reason: Pain Stop: 04/29/25 22:14 Rivaroxaban (Rivaroxaban 20 Mg Tab) 20 mg PO QDD [facility] Stop: 05/17/25 16:29 Last Admin: 04/18/25 15:23 Dose: 20 mg CPR sepsis C
[2025-04-19 06:51] LABS: Hematocrit (blood only) 42.3 % (42.0-52.0); Hemoglobin 13.4 g/dl (14.0-18.0); Mean Corpuscular Hemoglobin 29.0 pg (25.0-34.0); Mean Corpuscular Volume 91.6 fL (80.0-100.0); Platelet Count 115 K/uL (130-400); RDW Standard Deviation 51.7 fL (36.4-46.3); Red Blood Count 4.62 M/uL (4.70-6.10); White Blood Count 9.28 K/ul (4.8-10.8)
[2025-04-19 07:07] LABS: Alanine Aminotransferase 153.0 U/L (7-52); Albumin Globulin Ratio 1.2 (0.9-2); Alkaline Phosphatase 64.0 U/L (34-104); Anion Gap 8.0 (3-11); Bilirubin,Total 1.0 mg/dl (0.2-1.0); Blood Urea Nitrogen 33.0 mg/dl (6-23); Calcium 9.4 mg/dl (8.6-10.3); Carbon Dioxide 25.0 mmol/L (21-32); Chloride 105.0 mmol/L (98-107); Creatinine Clr Calc Pharmacy 61.8 ml/min; Globulin 3.1 gm/dl (2.5-4.0); Glucose 86.0 mg/dl (70-99(Fasting)); Potassium 4.4 mmol/L (3.5-5.1); Sodium 138.0 mmol/L (136-145); Total Protein 6.7 gm/dl (6.0-8.3)
[2025-04-19 07:10] LABS: ALC (manual) 4.18 K/uL (1.2-3.4); ANC (manual) 4.36 K/uL (1.4-6.5); Reactive Lymphocytes # (manual) 2.23 K/uL; Reactive Lymphocytes % (manual) 24 %
[2025-04-19 11:13] VITALS: TEMP 98.1
--- NOTE | 2025-04-19 12:36 | Hospitalist Progress Note ---
Date of Service April 19, 2025 Assessment & Plan (1) Severe sepsis: Plan: Assessment and plan below following discussion of case with ED provider and reviewing patient history/pertinent normal/abnormal diagnostic test results. Urine culture pending. The patient has been here with urine culture is pending severe sepsis SIRS plus lactic acidosis plus ARF Anaplasmosis -- Blood cultures: Negative to date --Urine culture: was negative --+ Anaplasmosis with intracytoplasmic neutrophilic inclusion -- Continue Rocephin, doxycycline for now -- Received IV fluids --Held losartan due to hypotension--resume as able --Adjust metoprolol dose as able. Clinically better but remains weak and lethargic and he still has mild to moderate shortness of breath at rest Will get PT and OT evaluation and 2 steps O2 saturation test prior to discharge Remains medically stable and feels lot better Has a PT evaluation and recommended home Will correct to 8 steps O2 saturation test prior to discharge today A-fib RVR Secondary to above H/O ablation/cardiac thrombus History of DVT Received digoxin Metoprolol dose reduced due to hypotension--adjust as able Continue amiodarone Continue Xarelto for anticoagulation Rate is controlled and will continue with the current dose of Toprol-XL 100 mg twice daily Transaminitis Thrombocytopenia Secondary to anaplasmosis Currently no signs of bleeding Has not improved yet and will recheck tomorrow LFTs are improving Troponin ladi LFTsvation Likely demand ischemia secondary to A-fib RVR In setting of renal insufficiency, sepsis Denies any chest pain, dyspnea Acute kidney injury Likely ATN Creatinine levels improved with IV fluids Avoid nephrotoxic agents as able Monitor renal function-renal function has been normalized Chronic systolic heart failure S/P ICD (EF 45%, TTE 2023) Monitor volume status closely while on IV fluids Continue metoprolol Not on diuretics at baseline Hypertension Blood pressure better today Adjust medications as needed Monitor closely Hyperlipidemia Hold statin as LFTs elevated Other chronic conditions: HOCM, mild MR Dementia, patient mentating well after initial intervention at the ER Chronic anemia Prediabetes: Last HbA1c 5.7 Past tobacco use Continue home medications as able DVT Px: Xarelto Code Status Full code Disposition PT OT prior to discharge-likely discharge tomorrow Will be discharged home this afternoon Admission and Anticipated Discharge Date Admission Date: April 15, 2025 Subjective 04/18/2025 The patient was seen and examined in telemetry unit He has been feeling much better but remains generally weak with mild to moderate shortness of breath at rest Denies any abdominal pain and his LFTs are not any better Awaiting PT and OT evaluation prior to discharge 04/19/2025 The patient was seen and examined in telemetry unit He has been feeling much better and wants to go home today He has had physical therapy evaluation and recommended home His LFTs are little better Review of Systems Review of Systems: All systems reviewed and are unremarkable except as noted below Physical Exam Physical Exam: Sitting at the edge of the bed without any acute distress except mild shortness of breath Constitutional: well developed, well nourished and + ill appearing Eyes: PERRL, conjunctivae normal, anicteric sclerae ENMT: external ear and nose normal, oropharynx normal Neck: trachea midline, no thyromegaly Respiratory: no respiratory distress Auscultation: lungs clear to auscultation bilaterally Cardiovascular: Rate/Rhythm: + irregularly irregular; not tachycardic Heart Sounds: normal S1 and normal S2; no murmur Extremities: no edema Gastrointestinal (Abdomen): Inspection/Auscultation: normal bowel sounds; abdomen not distended Percussion/Palpation: abdomen soft; abdomen nontender Neurologic: normal touch/pain/proprioception and moves all extremities; no focal motor deficits Psychiatric: A+Ox3, euthymic affect Lymphatic: no cervical or axillary lymphadenopathy Results & Data Results & Data Vital Signs (Past 12 Hours) Vital Signs Temp Pulse Pulse Resp BP Pulse Ox O2 Del Method 04/19/25 11:00 36.7 C 95 H 18 121/79 95 Room Air 04/19/25 07:37 91 H 04/19/25 07:30 36.5 C 91 H 16 140/88 98 Room Air 04/19/25 07:22 Room Air 04/19/25 03:03 36.3 C L 93 H 19 135/87 94 Room Air Laboratory Results Short CBC 04/19/25 Range/Units 06:02 WBC 9.28 (4.8-10.8) K/ul Hgb 13.4 L (14.0-18.0) g/dl Hct 42.3 (42.0-52.0) % Plt Count 115 L D (130-400) K/uL BMP 04/19/25 06:02 Sodium 138 Potassium 4.4 Chloride 105 Carbon Dioxide 25 BUN 33 H Creatinine 1.04 Glucose 86 Calcium 9.4 Liver Function 04/19/25 Range/Units 06:02 Total Bilirubin 1.0 (0.2-1.0) mg/dl AST 82 H (13-39) U/L ALT 153 H (7-52) U/L Alkaline Phosphatase 64 (34-104) U/L Albumin 3.6 (3.4-5.0) gm/dl Medications Administered Current Inpatient Medications Acetaminophen (Acetaminophen 500 Mg Tab) 500 mg PO Q6H PRN PRN Reason: fever/pain Stop: 05/15/25 22:15 Amiodarone HCl (Amiodarone 200 Mg Tab) 100 mg PO DAILY [facility] Stop: 05/16/25 08:59 Last Admin: 04/19/25 07:56 Dose: 100 mg Doxycycline Hyclate (Doxycycline Hyclate 100 Mg Cap) 100 mg PO BID [facility] Stop: 04/30/25 08:59 Last Admin: 04/19/25 07:52 Dose: 100 mg Famotidine (Famotidine 20 Mg Tab) 20 mg PO [facility] Stop: 05/16/25 08:59 Last Admin: 04/19/25 07:51 Dose: 20 mg Promethazine HCl (Phenergan) 6.25 mg in 50.25 mls @ 201 mls/hr IV Q6H PRN PRN Reason: Nausea And Vomiting Stop: 05/15/25 22:14 Ceftriaxone Sodium (Rocephin) 1,000 mg in 50 mls @ 100 mls/hr IV Q24H [facility] Stop: 04/21/25 19:59 Last Infusion: 04/18/25 21:23 Dose: Infused Melatonin (Melatonin 3 Mg Tab) 6 mg PO HS [facility] Stop: 05/16/25 20:59 Last Admin: 04/18/25 20:48 Dose: 6 mg Memantine (Memantine Hcl 10 Mg Tab) 10 mg PO [facility] Stop: 05/16/25 08:59 Last Admin: 04/19/25 07:52 Dose: 10 mg Metoprolol Succinate (Metoprolol Succ 50mg Ext Rel Tab) 100 mg PO [facility] Stop: 05/17/25 20:59 Last Admin: 04/19/25 07:55 Dose: 100 mg Oxycodone HCl (Oxycodone Hcl Ir 5 Mg Tab (Immediate Release)) 5 mg PO Q4H PRN PRN Reason: Pain Stop: 04/29/25 22:14 Rivaroxaban (Rivaroxaban 20 Mg Tab) 20 mg PO QDD [facility] Stop: 05/17/25 16:29 Last Admin: 04/18/25 15:23 Dose: 20 mg
[2025-04-19 13:06] VITALS: BP 143/83
[2025-04-19 13:35] VITALS: PULSE 68; RESP 16; O2SAT 98
--- NOTE | 2025-04-20 13:55 | Coding Query ---
Sepsis due to Anaplasmosis SEPSIS To promote full compliance with coding requirements relating to patient care, physician participation is requested in all cases of site interpreter uncertainty. Please assist us with the question(s) below: In responding to this query, please exercise your independent professional judgement. The fact that a question is asked does not imply that any particular answer is desired or expected. We appreciate your clarification on this issue. Throughout the medical record, you have clearly documented a localized infection and your patient has clinical evidence of a generalized sepsis or severe sepsis. The term urosepsis is a nonspecific entity and is coded as an UTI. If the patient has sepsis, severe sepsis, from an urinary source or some other source, please clarify in your response below. The medical record reflects the following clinical findings: (With dates as appropriate) (Body temperature of >38.3 C(101 F) or <36 C(96.8F), pulse >90/minute, respirations >20/minute, WBC count >12,000 or <4,000, altered mental status, significant edema or positive fluid balance, hyperglycemia without diabetes, hypotension, metabolic acidosis (elev. lactate level, anion gap or reduced blood pH), shock, positive blood culture (enter organism) ____ ()Bacteremia (Nonspecific laboratory finding of bacteria in the blood) Specify Organism () Present on Admission () Not present on admission () Unable to clinically determine () Septicemia (Systemic disease associated with the presence of pathogenic microorganisms in the blood): Specify Organism () Present on Admission () Not present on admission () Unable to clinically determine () Sepsis Specify Organism Specify Associated Condition/Diagnosis () Present on Admission () Not present on admission () Unable to clinically determine () Severe Sepsis (Sepsis associated with acute organ dysfunction) Specify Organism Specify Associated Condition/Diagnosis () Present on Admission () Not present on admission () Unable to clinically determine () Septic Shock (Severe sepsis with acute circulatory failure, unexplained by other causes) () Present on Admission () Not present on admission () Unable to clinically determine () Other, patient has: MTDD
--- NOTE | 2025-04-21 14:37 | Discharge Summary ---
Date of Service April 21, 2025 Admission HPI Per Admitting Provider History obtained from patient, family, and records. Medical history significant for chronic systolic heart failure status post ICD (EF 45%, TTE 2023), A-fib/flutter status post ablation/cardiac thrombus/history of DVT on Xarelto, HOCM, mild MR, PFO, NSVT, hypertension, hyperlipidemia, dementia, chronic anemia (baseline hemoglobin of 13), chronic back pain, past tobacco abuse. Last confinement 2013 for rapid A-fib. Patient not feeling well over the last 2 days. Patient increasingly weak and with mild confusion as per partner. Low-grade fever at home. Poor appetite. Patient denies headache, chest pain, SOB, cough, unusual abdominal or back pain. A lot of ticks at patient's home as per partner although patient has no recollection of recent tick bites. Patient noted to be in tachycardic upon EMS arrival at home. Patient with rapid A-fib upon arrival at the ER, heart rate 130s. Lowest SBP of 90s documented at the ER. Ceftriaxone and doxycycline administered at the ER for sepsis. Medical History as above Surgical History : Cataract surgery, vascular procedures, ICD, hernia repair Family History : Lung cancer, colon cancer, aplastic anemia, heart disease Personal/Social history : Past tobacco abuse, occasional EtOH intake, disabled Admission Exam Per Admitting Provider Physical Exam: GENERAL: Comfortable, no respiratory distress SKIN: Pallor, warm HEENT: Alopecia, pale palpebral conjunctivae, no ptosis, dry buccal mucosa NECK : Supple, no tenderness CHEST : CTA, no tenderness HEART : Tachycardic, no obvious murmurs ABDOMEN: Some distention, nontender EXTREMITIES : No LE swelling/tenderness, palpable pulses, no other conspicuous deformities noted NEUROLOGIC : Coherent, no facial asymmetry, no other gross focality Principal Diagnosis Sepsis due to anaplasmosis, A-fib with RVR Discharge Exam Sitting at the edge of the bed without any acute distress except mild shortness of breath Constitutional well developed, well nourished and + ill appearing Eyes PERRL, conjunctivae normal, anicteric sclerae ENMT external ear and nose normal, oropharynx normal Neck trachea midline, no thyromegaly Respiratory no respiratory distress Auscultation: lungs clear to auscultation bilaterally Cardiovascular Rate/Rhythm: + irregularly irregular; not tachycardic Heart Sounds: normal S1 and normal S2; no murmur Extremities: no edema Gastrointestinal (Abdomen) Inspection/Auscultation: normal bowel sounds; abdomen not distended Percussion/Palpation: abdomen soft; abdomen nontender Neurologic normal touch/pain/proprioception and moves all extremities; no focal motor deficits Psychiatric A+Ox3, euthymic affect Lymphatic no cervical or axillary lymphadenopathy Discharge Data Allergies Allergy/AdvReac Type Severity Reaction Status Date / Time pollen extracts Allergy Intermediate ITCHY Verified 04/15/25 22:09 EYES, SNEEZING, CONGESTION Consultations 04/15/25 21:23 ED Decision to Admit Stat Hospital Course (1) Severe sepsis: Assessment and plan below following discussion of case with ED provider and reviewing patient history/pertinent normal/abnormal diagnostic test results. Urine culture pending. The patient has been here with urine culture is pending severe sepsis SIRS plus lactic acidosis plus ARF Anaplasmosis -- Blood cultures: Negative to date --Urine culture: was negative --+ Anaplasmosis with intracytoplasmic neutrophilic inclusion -- Continue Rocephin, doxycycline for now -- Received IV fluids --Held losartan due to hypotension--resume as able --Adjust metoprolol dose as able. Clinically better but remains weak and lethargic and he still has mild to moderate shortness of breath at rest Will get PT and OT evaluation and 2 steps O2 saturation test prior to discharge Remains medically stable and feels lot better Has a PT evaluation and recommended home Will correct to 8 steps O2 saturation test prior to discharge today A-fib RVR Secondary to above H/O ablation/cardiac thrombus History of DVT Received digoxin Metoprolol dose reduced due to hypotension--adjust as able Continue amiodarone Continue Xarelto for anticoagulation Rate is controlled and will continue with the current dose of Toprol-XL 100 mg twice daily Transaminitis Thrombocytopenia Secondary to anaplasmosis Currently no signs of bleeding Has not improved yet and will recheck tomorrow LFTs are improving Troponin ladi LFTsvation Likely demand ischemia secondary to A-fib RVR In setting of renal insufficiency, sepsis Denies any chest pain, dyspnea Acute kidney injury Likely ATN Creatinine levels improved with IV fluids Avoid nephrotoxic agents as able Monitor renal function-renal function has been normalized Chronic systolic heart failure S/P ICD (EF 45%, TTE 2023) Monitor volume status closely while on IV fluids Continue metoprolol Not on diuretics at baseline Hypertension Blood pressure better today Adjust medications as needed Monitor closely Hyperlipidemia Hold statin as LFTs elevated Other chronic conditions: HOCM, mild MR Dementia, patient mentating well after initial intervention at the ER Chronic anemia Prediabetes: Last HbA1c 5.7 Past tobacco use Continue home medications as able DVT Px: Xarelto Code Status Full code Disposition PT OT prior to discharge-likely discharge tomorrow Will be discharged home this afternoon Total Time Total Time Spent Total Time Spent (In Minutes): 40 minutes Discharge Plan Discharge Items Patient Disposition: Home - Self-Care Reason For Visit: AF, SEPSIS Discharge Diagnosis: Sepsis due to anaplasmosis, A-fib with RVR Condition on Discharge: Fair Activity: Resume your previous activity Non-emergency contact: Primary Care Provider Call non-emergency contact if: you have any medication questions and your symptoms worsen Follow-up/Referrals: Joel Morales MD [Primary Care Provider] - (Date & Time 04/24/2025 1:00 PM Provider: Joel Morales MD [facility] ) Diet: Heart Healthy Addtl Attending Provider Instructions: Please take precautions to avoid falls Finish the course of antibiotic and take your medications as advised Keep appointments with your healthcare providers Pending Studies at Discharge: No Stand-Alone Forms: [facility] [employer], Smoking Cessation Medications and DC Order Prescriptions: New metoprolol succinate [Toprol XL] 100 mg tablet extended release 24 hr 100 mg PO AMHS Qty: 60 0RF doxycycline hyclate 100 mg Capsule 100 mg PO BID Qty: 14 0RF Continued amoxicillin 500 mg Capsule 2,000 mg PO DIRECTED PRN (Reason: PRIOR TO DENTAL PROCEDURES) aspirin 81 mg Tablet,Delayed Release (Dr/Ec) 81 mg PO QAM tramadol 50 mg tablet 50 mg PO BID famotidine 20 mg tablet 20 mg PO AMHS Xarelto 20 mg tablet 20 mg PO DAILY magnesium oxide 400 mg magnesium Tablet 400 mg PO QAM losartan 50 mg tablet 50 mg PO QAM amiodarone 200 mg tablet 100 mg PO DAILY rosuvastatin 10 mg tablet 10 mg PO QAM memantine 10 mg tablet 10 mg PO AMHS melatonin 3 mg Tablet 12 mg PO HS acetaminophen-codeine 300-30 mg tablet 1 tab PO HS PRN (Reason: Severe Pain (Scale Score 7-10)) acetaminophen [Tylenol Extra Strength] 500 mg Tablet 500 mg PO Q6H PRN (Reason: PAIN/FEVER) ascorbic acid (vitamin C) [Vitamin C] 500 mg Tablet,Chewable 1,000 mg PO DAILY cholecalciferol (vitamin D3) [Vitamin D3] 125 mcg (5,000 unit) Tablet 125 mcg PO DAILY Jardiance 10 mg tablet 10 mg PO QAM Discontinued metoprolol succinate 100 mg tablet extended release 24 hr 150 mg PO AMHS Discharge Orders: Discharge Order (Routine); Ordered 04/19/25 Ordered By: Jhon Mclaughlin Admission Data Admit Date/Time: 04/15/25 22:05 Attending Provider: John Mclaughlin Admit Provider: Brett Oh Primary Care Provider: Joel Morales Other Providers: Brett Oh Other Interventions: Discharge Summary Assessment (RN) Last Done: 04/19/25 12:59
== END 2025-04-19 13:53 | disposition home or self-care (01) | DRG 871 ==
LOC: ED 19:18 → EDINP 22:05 → SUATTDRO 22:05 → 2S 23:19